=== PATIENT | male | born 1970 | race African-American/Black ===

== ENCOUNTER 2019-01-31 22:39 | Emergency (ER) | payer SELFPAY ==
[~2019-01-31] VITALS: Ht 193 cm; Wt 136.1 kg
[~2019-01-31 22:39] MED LIST: CETI10TA16 PO
[2019-01-31 23:03] VITALS: BP 170/101
[2019-02-01] MEDS ORDERED: MECLIZINE HCL 12.5 MG TABLET. PO ONE
--- NOTE | 2019-02-01 00:04 | PHYS DOC ---
Past Medical History Past Medical History: Hypertension Past Surgical History: No Surgical History Alcohol Use: Rarely Drug Use: None Adult General Chief Complaint Chief Complaint: DIZZY/LIGHT HEADED HPI HPI Patient is a 48 year old male who presents with complaining of dizziness. Patient states for the last 2-3 days he has had intermittent episodes of dizziness with change of position and standing up. Patient states tonight he had nausea and bilateral hand numbness with dizziness. Patient states paresthesia last about 20 minutes and resolved at arrival to ER. Patient states he has had history of hypertension for long time and usually his blood pressure is well-controlled with diet and does not take any medication. Patient had elevation of blood pressure at arrival to ER. Review of Systems Review of Systems Constitutional: Denies fever or chills [] Eyes: Denies change in visual acuity, redness, or eye pain [] HENT: Denies nasal congestion or sore throat [] Respiratory: Denies cough or shortness of breath [] Cardiovascular: No additional information not addressed in HPI [] GI: Denies abdominal pain, vomiting, bloody stools or diarrhea , reports nausea[] : Denies dysuria or hematuria [] Musculoskeletal: Denies back pain or joint pain [] Integument: Denies rash or skin lesions [] Neurologic: Denies headache, focal weakness, reports dizziness and sensory changes [] Endocrine: Denies polyuria or polydipsia [] All other systems were reviewed and found to be within normal limits, except as documented in this note. Current Medications Current Medications Current Medications Medications (Trade) Dose Ordered Sig/Lubna Start Time Stop Time Status Last Admin Dose Admin Meclizine HCl (Antivert) 25 mg 1X ONCE 02/01/19 00:00 02/01/19 00:01 DC 02/01/19 00:28 25 MG Allergies Allergies Allergies Coded Allergies Type Severity Reaction Last Updated Verified No Known Drug Allergies 07/19/15 No Physical Exam Physical Exam Constitutional: Well developed, well nourished, no acute distress, non-toxic appearance. [] HENT: Normocephalic, atraumatic, bilateral external ears normal, oropharynx moist, no oral exudates, nose normal. [] Eyes: PERRLA, EOMI, conjunctiva normal, no discharge. [] Neck: Normal range of motion, no tenderness, supple, no stridor. [] Cardiovascular:Heart rate regular rhythm, no murmur [] Lungs & Thorax: Bilateral breath sounds clear to auscultation [] Abdomen: Bowel sounds normal, soft, no tenderness, no masses, no pulsatile masses. [] Skin: Warm, dry, no erythema, no rash. [] Back: No tenderness, no CVA tenderness. [] Extremities: No tenderness, no cyanosis, no clubbing, ROM intact, no edema. [] Neurologic: Alert and oriented X 3, normal motor function, normal sensory function, no focal deficits noted. [] Psychologic: Affect normal, judgement normal, mood normal. [] Current Patient Data Vital Signs Vital Signs Date Time Temp Pulse Resp B/P (MAP) Pulse Ox O2 Delivery O2 Flow Rate FiO2 01/31/19 23:03 98.4 70 19 170/101 (124) 100 Room Air 98.4 Lab Values Laboratory Tests Test 01/31/19 23:30 White Blood Count 7.6 x10^3/uL (4.0-11.0) Red Blood Count 4.85 x10^6/uL (4.30-5.70) Hemoglobin 14.7 g/dL (13.0-17.5) Hematocrit 43.7 % (39.0-53.0) Mean Corpuscular Volume 90 fL (79-100) Mean Corpuscular Hemoglobin 30 pg (25-35) Mean Corpuscular Hemoglobin Concent 34 g/dL (31-37) Red Cell Distribution Width 13.7 % (11.5-14.5) Platelet Count 277 x10^3/uL (140-400) Neutrophils (%) (Auto) 60 % (31-73) Lymphocytes (%) (Auto) 30 % (24-48) Monocytes (%) (Auto) 6 % (0-9) Eosinophils (%) (Auto) 3 % (0-3) Basophils (%) (Auto) 1 % (0-3) Neutrophils # (Auto) 4.6 x10^3/uL (1.8-7.7) Lymphocytes # (Auto) 2.3 x10^3/uL (1.0-4.8) Monocytes # (Auto) 0.5 x10^3/uL (0.0-1.1) Eosinophils # (Auto) 0.2 x10^3/uL (0.0-0.7) Basophils # (Auto) 0.0 x10^3/uL (0.0-0.2) Prothrombin Time 13.0 SEC (11.7-14.0) Prothrombin Time INR 1.0 (0.8-1.1) Sodium Level 138 mmol/L (136-145) Potassium Level 3.8 mmol/L (3.5-5.1) Chloride Level 102 mmol/L (98-107) Carbon Dioxide Level 28 mmol/L (21-32) Anion Gap 8 (6-14) Blood Urea Nitrogen 12 mg/dL (8-26) Creatinine 1.3 mg/dL (0.7-1.3) Estimated GFR (Cockcroft-Gault) 71.6 BUN/Creatinine Ratio 9 (6-20) Glucose Level 180 mg/dL (70-99) H Calcium Level 9.0 mg/dL (8.5-10.1) Magnesium Level 1.7 mg/dL (1.8-2.4) L Total Bilirubin 0.3 mg/dL (0.2-1.0) Aspartate Amino Transferase (AST) 14 U/L (15-37) L Alanine Aminotransferase (ALT) 25 U/L (16-63) Alkaline Phosphatase 57 U/L (46-116) Creatine Kinase 130 U/L (39-308) Troponin I Quantitative < 0.017 ng/mL (0.000-0.055) QR-Jex-C-Type Natriuretic Peptide 27 pg/mL (0-124) Total Protein 7.6 g/dL (6.4-8.2) Albumin 3.5 g/dL (3.4-5.0) Albumin/Globulin Ratio 0.9 (1.0-1.7) L Laboratory Tests 01/31/19 23:30 Laboratory Tests 01/31/19 23:30 EKG EKG EKG interpreted by me. EKG at 11/08/19 showed sinus bradycardia at rate of 50, nonspecific ST and T-wave abnormalities, poor R-wave progress in anteroseptal leads, normal IA and QT interval, no acute ST and T abnormalities. Radiology/Procedures Radiology/Procedures [facility] [address] [place], [place] [id number] IMAGING REPORT Signed PATIENT: MONICA LEE EACCOUNT: [id number] : 1970 LOCATION: ER AGE: 48 SEX: M EXAM STATUS: DEP ER ORD. PHYSICIAN: JASMYN OSULLIVAN MD REASON: dizziness PROCEDURE: PORTABLE CHEST 1V Single view chest dated September 2018. Comparison made to 07/19/2015. Clinical data indication: Dizziness. FINDINGS: Single upright portable exam performed. Heart and mediastinal contours are stable. Lungs are clear. No consolidation or pleural effusion. No pneumothorax. IMPRESSION: No acute radiographic abnormality. Electronically signed by: Elliot Neal MD (02/01/2019 2:37 AM) [facility] DICTATED and SIGNED BY: ELLIOT NEAL MD DATE: 02/01/19 0237 [facility] [address] [place] [address] IMAGING REPORT Signed PATIENT: MONICA LEE EACCOUNT: [id number] : 1970 LOCATION: ER AGE: 48 SEX: M EXAM STATUS: REG ER ORD. PHYSICIAN: JASMYN OSULLIVAN MD REASON: dizziness PROCEDURE: CT HEAD WO CONTRAST CT head without contrast dated 01/31/2019. Comparison made to 07/19/2015. CLINICAL INDICATION: Dizziness. TECHNIQUE: Contiguous axial imaging the head was performed from skull base to vertex. No contrast administered. One or more of the following individualized dose reduction techniques were utilized for this examination: 1. Automated exposure control 2. Adjustment of the mA and/or kV according to patient size 3. Use of iterative reconstruction technique. FINDINGS: Ventricles and sulci are within normal limits for age. No midline shift or mass effect. Brain parenchyma is of normal attenuation. No hemorrhage or extra-axial collection. Posterior fossa and brainstem unremarkable. Small air-fluid level in the left maxillary sinus. Mild mucosal thickening of the bilateral ethmoid air cells. Mastoid air cells are clear. No apparent calvarial abnormality. IMPRESSION: 1. No evidence of acute intracranial abnormality. 2. Mild sinus disease. Air-fluid level in left maxillary sinus, possibly representing acute sinusitis. Electronically signed by: Elliot Neal MD (02/01/2019 12:11 AM) [facility] DICTATED and SIGNED BY: ELLIOT NEAL MD DATE: 02/01/19 0011 Course & Med Decision Making Course & Med Decision Making Pertinent Labs and Imaging studies reviewed. (See chart for details) Evaluation of patient in ER showed 48-year-old male patient with hypertension that taking medication presented to ER with complaining of dizziness. Patient had unremarkable physical exam and mild elevation of blood pressure 160 that gradually improved to 130s. Labs and CT was unremarkable except for sinusitis. Patient was advised to check his blood pressure and follow-up with his primary care physician. Prescription for clonidine was given for PRN hypertension. Blood sugar was 180 and patient was advised to check departure. Follow with primary care physician. Marsha Disclaimer Marsha Disclaimer This electronic medical record was generated, in whole or in part, using a voice recognition dictation system. Departure Departure Impression: Primary Impression: Dizziness Additional Impressions: Acute sinusitis Uncontrolled hypertension Hyperglycemia Disposition: HOME, SELF-CARE (at 00 57) Condition: IMPROVED Referrals: NO PCP (PCP) Patient Instructions: Dizziness, Form - Blood Pressure Record Sheet, How to Take Your Blood Pressure, [id number], Managing Your High Blood Pressure, Sinusitis Additional Instructions: Drink plenty of liquids Follow-up with your primary care physician in 3-5 days Return to ER if not getting better Scripts Clonidine Hcl (CLONIDINE HCL) 0.1 Mg Tablet 0.1 MG PO BID, #20 TAB Prov: JASMYN OSULLIVAN MD 02/01/19 Amoxicillin (AMOXICILLIN) 500 Mg Capsule 1 CAP PO Q8HRS for infection, #30 CAP Prov: JASMYN OSULLIVAN MD 02/01/19 Problem Qualifiers Additional Impressions: Acute sinusitis Sinusitis location: maxillary Recurrence: not specified as recurrent Qualified Codes: J01.00 - Acute maxillary sinusitis, unspecified JASMYN OSULLIVAN MD Feb 01, 2019 00:03
[2019-02-01 00:07] LABS: BASO % 1 % (0-3); EOS # 0.2 x10^3/uL (0.0-0.7); EOS % 3 % (0-3); HEMATOCRIT 43.7 % (39.0-53.0); HEMOGLOBIN 14.7 g/dL (13.0-17.5); LYMPH # 2.3 x10^3/uL (1.0-4.8); LYMPH % 30 % (24-48); MEAN CORPUSCULAR HEMOGLOBIN 30 pg (25-35); MEAN CORPUSCULAR HGB CONC 34 g/dL (31-37); MEAN CORPUSCULAR VOLUME 90 fL (79-100); MONO # 0.5 x10^3/uL (0.0-1.1); MONO % 6 % (0-9); NEUT # 4.6 x10^3/uL (1.8-7.7); NEUT % 60 % (31-73); PLATELET COUNT 277 x10^3/uL (140-400); RED BLOOD COUNT 4.85 x10^6/uL (4.30-5.70); RED CELL DISTRIBUTION WIDTH 13.7 % (11.5-14.5); WHITE BLOOD COUNT 7.6 x10^3/uL (4.0-11.0)
--- NOTE | 2019-02-01 00:13 | RAD ---
CT head without contrast dated 01/31/2019. Comparison made to 07/19/2015. CLINICAL INDICATION: Dizziness. TECHNIQUE: Contiguous axial imaging the head was performed from skull base to vertex. No contrast administered. One or more of the following individualized dose reduction techniques were utilized for this examination: 1. Automated exposure control 2. Adjustment of the mA and/or kV according to patient size 3. Use of iterative reconstruction technique. FINDINGS: Ventricles and sulci are within normal limits for age. No midline shift or mass effect. Brain parenchyma is of normal attenuation. No hemorrhage or extra-axial collection. Posterior fossa and brainstem unremarkable. Small air-fluid level in the left maxillary sinus. Mild mucosal thickening of the bilateral ethmoid air cells. Mastoid air cells are clear. No apparent calvarial abnormality. IMPRESSION: 1. No evidence of acute intracranial abnormality. 2. Mild sinus disease. Air-fluid level in left maxillary sinus, possibly representing acute sinusitis. Electronically signed by: Elliot Neal MD (02/01/2019 12:11 AM) [facility]
[2019-02-01 00:15] LABS: CREATININE 1.3 mg/dL (0.7-1.3); GFR 71.6; POTASSIUM 3.8 mmol/L (3.5-5.1)
[2019-02-01 00:21] LABS: ALBUMIN 3.5 g/dL (3.4-5.0); ALBUMIN/GLOBULIN RATIO 0.9 (1.0-1.7); MAGNESIUM 1.7 mg/dL (1.8-2.4); TOTAL BILIRUBIN 0.3 mg/dL (0.2-1.0); TOTAL PROTEIN 7.6 g/dL (6.4-8.2)
[2019-02-01] MEDS ORDERED: AMOX500C PO (00:59)
[2019-02-01] MEDS ORDERED: CLON0.1T PO (00:59)
--- NOTE | 2019-02-01 02:40 | RAD ---
Single view chest dated September 2018. Comparison made to 07/19/2015. Clinical data indication: Dizziness. FINDINGS: Single upright portable exam performed. Heart and mediastinal contours are stable. Lungs are clear. No consolidation or pleural effusion. No pneumothorax. IMPRESSION: No acute radiographic abnormality. Electronically signed by: Elliot Neal MD (02/01/2019 2:37 AM) [facility]
--- NOTE | 2019-02-01 05:01 | EKG ---
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
== END 2019-02-01 02:00 | disposition home or self-care (01) ==
LOC: ER 22:39
DX: R42 Dizziness and giddiness (principal); R20.0 Anesthesia of skin; I10 Essential (primary) hypertension; J01.00 Acute maxillary sinusitis, unspecified; R73.9 Hyperglycemia, unspecified
CPT/HCPCS: 36415; 70450; 71045; 80053; 82550; 83735; 83880; 84484; 85025; 85610; 93005; 99285; J8597

== ENCOUNTER 2020-07-29 16:38 | Inpatient (IN) | payer SELFPAY ==
[~2020-07-29] VITALS: Ht 193 cm; Wt 128.4 kg
[~2020-07-29 16:38] MED LIST changes: +AMOX500C PO; +CLON0.1T PO
[2020-07-29] MEDS ORDERED: IOHEXOL 300 MG/ML 100ML VIAL. IV ONE (17:00)
--- NOTE | 2020-07-29 17:00 | PHYS DOC ---
Past Medical History Past Medical History: Hypertension Past Surgical History: No Surgical History Smoking Status: Former Smoker Alcohol Use: Rarely Drug Use: None General Adult EDM: Chief Complaint: NAUSEA/VOMITING/DIARRHA HPI: HPI: Patient is a 49 year old male who presents with vomiting and diarrhea for the last week. He states he is unable to keep anything down. He states that he has no abdominal pain only nausea and vomiting. He states that the diarrhea has stopped over the last 2 days. He states that he is feeling very weak. Patient denies shortness of breath, cough, chest pain, abdominal pain, fever, chills, body aches, headache, dizziness, numbness or tingling, focal weakness, vision changes. She has a history of seizures, headache, hypertension, high cholesterol, diabetes. Review of Systems: Review of Systems: Constitutional: Denies fever or chills. [] Eyes: Denies change in visual acuity. [] HENT: Denies nasal congestion or sore throat. [] Respiratory: Denies cough or shortness of breath. [] Cardiovascular: Denies chest pain or edema. [] GI: Denies abdominal pain, +nausea, +vomiting, denies bloody stools or diarrhea. [] : Denies dysuria. [] Musculoskeletal: Denies back pain or joint pain. +Generalized weakness[] Integument: Denies rash. [] Neurologic: Denies headache, focal weakness or sensory changes. [] Endocrine: Denies polyuria or polydipsia. [] Lymphatic: Denies swollen glands. [] Psychiatric: Denies depression or anxiety. [] Heart Score: Risk Factors: Risk Factors: DM, Current or recent (<one month) smoker, HTN, HLP, family history of CAD, obesity. Risk Scores: Score 0 - 3: 2.5% MACE over next 6 weeks - Discharge Home Score 4 - 6: 20.3% MACE over next 6 weeks - Admit for Clinical Observation Score 7 - 10: 72.7% MACE over next 6 weeks - Early Invasive Strategies Current Medications: Current Medications Medications (Trade) Dose Ordered Sig/Lubna Start Time Stop Time Status Last Admin Dose Admin Famotidine (Pepcid Vial) 20 mg 1X ONCE 07/29/20 17:00 07/29/20 17:01 UNV Metoclopramide HCl (Reglan Vial) 10 mg 1X ONCE 07/29/20 17:00 2/7/21 17:01 UNV Ondansetron HCl (Zofran) 4 mg 1X ONCE 07/29/20 17:00 07/29/20 17:01 UNV Sodium Chloride 1,000 ml @ 1,000 mls/hr Q1H 07/29/20 17:00 07/29/20 17:59 UNV Allergies: Allergies: Allergies Coded Allergies Type Severity Reaction Last Updated Verified No Known Drug Allergies 07/19/15 No Physical Exam: PE: Constitutional: Well developed, well nourished, no acute distress, non-toxic appearance. [] HENT: Normocephalic, atraumatic, bilateral external ears normal, oropharynx moist, no oral exudates, nose normal. [] Eyes: PERRLA, EOMI, conjunctiva normal, no discharge. [] Neck: Normal range of motion, no tenderness, supple, no stridor. [] Cardiovascular:Heart rate regular rhythm, no murmur [] Lungs & Thorax: Bilateral breath sounds clear to auscultation [] Abdomen: Bowel sounds normal, soft, no tenderness, no masses, no pulsatile masses. [] Skin: Warm, dry, no erythema, no rash. [] Back: No tenderness, no CVA tenderness. [] Extremities: No tenderness, no cyanosis, no clubbing, ROM intact, no edema. [] Neurologic: Alert and oriented X 3, normal motor function, normal sensory function, no focal deficits noted. [] Psychologic: Affect normal, judgement normal, mood normal. Normal physical exam [] EKG: EK and read by Dr. Huynh as sinus Tachycardia and no STEMI [] Radiology/Procedures: Radiology/Procedures: [] Impression: [facility] [address] [place], [place] [id number] IMAGING REPORT Signed PATIENT: MONICA LEE EACCOUNT: [id number] : 1970 LOCATION: ER AGE: 49 SEX: M EXAM STATUS: REG ER ORD. PHYSICIAN: ANDREEA LARA APRN REASON: VOMITING AND DIARRHEA X 1 WEEK PROCEDURE: CT ABDOMEN PELVIS WO CONTRAST Exam: CT of abdomen and pelvis without contrast INDICATION: Vomiting and diarrhea TECHNIQUE: Sequential axial images through the abdomen and pelvis obtained without IV contrast. Sagittal and coronal reformatted images were reconstructed from the axial data and reviewed. Comparisons: None FINDINGS: Heart size is normal. No pericardial effusion. Visualized lung bases are clear. No pleural Evaluation of solid organs is limited secondary to noncontrast technique. Liver, spleen, pancreas, gallbladder and adrenals are unremarkable. No perinephric inflammation or hydronephrosis. No renal or ureteral calculi are identified. Bladder is decompressed not well evaluated. Prostate is not enlarged. Large and small bowel are unremarkable. Appendix is normal. No free intra- abdominal air or fluid. No obstruction. Abdominal aorta has a normal course and caliber. No enlarged intra-abdominal lymph nodes are identified. No suspicious osseous lesions or acute fractures. IMPRESSION: No acute process identified within the abdomen or pelvis. Exposure: One or more of the following in the visualized dose reduction techniques were utilized for this examination: 1. Automated exposure control 2. Adjustment of the MA and/or KV according to patient size 3. Use of iterative of reconstructive technique Electronically signed by: Ba Borjas MD (07/29/2020 6:41 PM) [facility] DICTATED and SIGNED BY: BA BORJAS MD DATE: 07/29/20 [id number] 0 Course & Med Decision Making: Course & Med Decision Making Pertinent Labs and Imaging studies reviewed. (See chart for details) COVID-19 CRITERIA: The patient was evaluated during the global COVID-19 pandemic, and that diagnosis was suspected/considered upon their initial presentation. Their evaluation, treatment and testing was consistent with current guidelines for patients who present with complaints or symptoms that may be related to COVID-19. See HPI. Alert and oriented x4. Ambulatory with a steady gait. Skin pink warm and dry. Abdomen is soft and nontender. Speaks in full complete sentences. No extremity edema. Patient is given Zofran, Reglan and a bag of normal saline in the ED. Blood work shows acute kidney injury with DKA. Urinalysis shows trichomonas and dehydration. Patient is given a dose of Flagyl to the IV due to his vomiting. Patient be admitted to the hospital. He is started on an IV drip. [] Marsha Disclaimer: Marsha Disclaimer: This electronic medical record was generated, in whole or in part, using a voice recognition dictation system. COVID-19 Patient Risks: Age 65 or older: No Sign of co-morbidity: Yes Exp to person + for COVID: No Exp to PUI: No Travel from affected area: No Lower respiratory symptoms: No Other: Yes (N/V/D) PPE Use: Full PPE with N95 mask or PAPR: Yes Departure Departure Impression: Primary Impression: DKA (diabetic ketoacidoses) Qualified Codes: E11.10 - Type 2 diabetes mellitus with ketoacidosis without coma Additional Impressions: Trichomonas infection Person under investigation for COVID-19 Disposition: ADMITTED INPT THIS HOSP Admitting Physician: BRITANY Condition: STABLE Referrals: NO PCP (PCP) ANDREEA LARA APRN Jul 29, 2020 17:00
[2020-07-29] MEDS ORDERED: CONTRAST GIVEN. MC PRN (17:15)
[2020-07-29] MEDS ORDERED: FAMOTIDINE 20 MG/2 ML VIAL IVP ONE (17:30)
[2020-07-29] MEDS ORDERED: IV NORMAL SALINE 1000ML BAG 1,000 ML IV SCH ×3 (17:30→19:45)
[2020-07-29] MEDS ORDERED: ONDANSETRON PF 4 MG/2 ML VIAL. IVP ONE (17:30)
[2020-07-29] MEDS ORDERED: METOCLOPRAMIDE HCL 10 MG/2 ML VIAL. IVP ONE (17:30)
[2020-07-29 17:51] LABS: BASO % 0 % (0-3); EOS % 0 % (0-3); HEMATOCRIT 49.2 % (39.0-53.0); HEMOGLOBIN 16.3 g/dL (13.0-17.5); LYMPH # 1.1 x10^3/uL (1.0-4.8); LYMPH % 7 % (24-48); MEAN CORPUSCULAR HEMOGLOBIN 30 pg (25-35); MEAN CORPUSCULAR HGB CONC 33 g/dL (31-37); MEAN CORPUSCULAR VOLUME 92 fL (79-100); MONO # 0.4 x10^3/uL (0.0-1.1); MONO % 3 % (0-9); NEUT # 12.8 x10^3/uL (1.8-7.7); NEUT % 89 % (31-73); PLATELET COUNT 322 x10^3/uL (140-400); RED BLOOD COUNT 5.37 x10^6/uL (4.30-5.70); WHITE BLOOD COUNT 14.4 x10^3/uL (4.0-11.0)
[2020-07-29 18:08] LABS: ALBUMIN/GLOBULIN RATIO 0.8 (1.0-1.7); CALCIUM 9.9 mg/dL (8.5-10.1); CREATININE 2.1 mg/dL (0.7-1.3); POTASSIUM 4.5 mmol/L (3.5-5.1); TOTAL BILIRUBIN 0.6 mg/dL (0.2-1.0); TOTAL PROTEIN 8.8 g/dL (6.4-8.2)
[2020-07-29] MEDS ORDERED: IV NORMAL SALINE 1000ML BAG 1,000 ML IV ONE (18:15)
[2020-07-29] MEDS ORDERED: INSULIN REGULAR 100 UNIT/ML 3ML VIAL. IV ONE (18:15)
[2020-07-29 18:31] LABS: BILIRUBIN,URINE NEGATIVE (NEG); CLARITY,URINE CLEAR; COLOR,URINE YELLOW; NITRITE,URINE NEGATIVE (NEG); PROTEIN,URINE 30 mg/dL (NEG-TRACE); UROBILINOGEN,URINE 0.2 mg/dL (0.2 mg/dL)
[2020-07-29 18:36] LABS: BACTERIA,URINE 0 /HPF (0-FEW); RBC,URINE OCC /HPF (0-2)
[2020-07-29 18:37] LABS: INFLUENZA A PATIENT NEGATIVE (NEGATIVE); INFLUENZA B PATIENT NEGATIVE (NEGATIVE)
[2020-07-29 18:38] LABS: HYALINE CASTS, URINE FEW /HPF; TRICHOMONAS,URINE PRESENT; YEAST,URINE PRESENT /HPF
--- NOTE | 2020-07-29 18:44 | RAD ---
Exam: CT of abdomen and pelvis without contrast INDICATION: Vomiting and diarrhea TECHNIQUE: Sequential axial images through the abdomen and pelvis obtained without IV contrast. Sagit howie and coronal reformatted images were reconstructed from the axial data and reviewed. Comparisons: None FINDINGS: Heart size is normal. No pericardial effusion. Visualized lung bases are clear. No pleural Evaluation of solid organs is limited secondary to noncontrast technique. Liver, spleen, pancreas, gallbladder and adrenals are unremarkable. No perinephric inflammation or hydronephrosis. No renal or ureteral calculi are identified. Bladder is decompressed not well evaluated. Prostate is not enlarged. Large and small bowel are unremarkable. Appendix is normal. No free intra-abdominal air or fluid. No obstruction. Abdominal aorta has a normal course and caliber. No enlarged intra-abdominal lymph nodes are identified. No suspicious osseous lesions or acute fractures. IMPRESSION: No acute process identified within the abdomen or pelvis. Exposure: One or more of the following in the visualized dose reduction techniques were utilized for this examination: 1. Automated exposure control 2. Adjustment of the MA and/or KV according to patient size 3. Use of iterative of reconstructive technique Electronically signed by: Ba Reddy MD (07/29/2020 6:41 PM) [facility]
[2020-07-29 18:45] LABS: % BASOS 1 % (0-3); % LYMPHS 9 % (24-48); % MONOS 5 % (0-10); % SEGS 85 % (35-66)
[2020-07-29] MEDS ORDERED: INSULIN,REGULAR 100 UNIT DRIP 100 ML IV ONE (18:45)
[2020-07-29 18:46] LABS: PLT ESTIMATE ADEQUATE (ADEQUATE)
[2020-07-29 18:48] LABS: BASE EXCESS COOX -18 mmol/L (-3-3); HCO3 COOX 8 mmol/L (21-28); METHEMOGLOBIN 0.5 % (0.0-1.9); OXYHEMOGLOBIN 96.2 %; PO2 COOX 111 mmHg (75-108); SAT O2 COOX 97 % (92-99)
[2020-07-29 18:51] LABS: PCO2 COOX 19 mmHg (35-46)
[2020-07-29] MEDS ORDERED: ACETAMINOPHEN 325 MG TABLET. PO PRN (19:45)
[2020-07-29] MEDS ORDERED: POTASSIUM CHLORIDE 10MEQ 100 ML IV PRN ×3 (19:45)
[2020-07-29] MEDS ORDERED: INSULIN REGULAR VIAL 100 UNIT in IV NORMAL SALINE 100ML 100 ML IV PRN (19:45)
[2020-07-29] MEDS ORDERED: LACTULOSE 20 GM/30 ML SOLUTION. PO PRN (19:45)
[2020-07-29] MEDS ORDERED: BISACODYL 10 MG SUPP.RECT. PR PRN (19:45)
[2020-07-29] MEDS ORDERED: 0.9 % SODIUM CHLORIDE 10 ML DISP.SYRIN. IV PRN (19:45)
[2020-07-29] MEDS ORDERED: ONDANSETRON PF 4 MG/2 ML VIAL. IVP PRN (19:45)
[2020-07-29] MEDS ORDERED: fentaNYL PF VIAL 100 MCG/2 ML VIAL IV PRN (19:45)
[2020-07-29] MEDS ORDERED: ONDANSETRON PF 4 MG/2 ML VIAL. IV PRN (20:00)
[2020-07-29] MEDS: SENNOSIDES/DOCUSATE 8.6/50MG TABLET. PO SCH (21:00)
[2020-07-29] MEDS: DOCUSATE SODIUM 100 MG CAPSULE. PO SCH (21:00)
[2020-07-29] MEDS: FAMOTIDINE 20 MG/2 ML VIAL IVP SCH (21:00)
[2020-07-29 22:00] VITALS: BP 154/93
[2020-07-29] MEDS: IV NORMAL SALINE 1000ML BAG 1,000 ML IV SCH (22:15)
[2020-07-29] MEDS: IV DEXTROSE 5% - 0.9 % NACL 1,000 ML IV SCH (22:31)
[2020-07-29 22:51] LABS: CALCIUM 8.5 mg/dL (8.5-10.1); CREATININE 1.6 mg/dL (0.7-1.3); GFR 56.1; MAGNESIUM 1.8 mg/dL (1.8-2.4); PHOSPHORUS 3.2 mg/dL (2.6-4.7); POTASSIUM 4.4 mmol/L (3.5-5.1)
[2020-07-29 23:00] VITALS: BP 155/91
[2020-07-30] VITALS (12 sets, daily range): BP systolic 133–160; BP diastolic 72–92
[2020-07-30] MEDS ORDERED: MAGNESIUM SULFATE 4GM 100 ML IV SCH
[2020-07-30] MEDS: IV DEXTROSE 5% - 0.9 % NACL 1,000 ML IV SCH (02:40)
[2020-07-30 06:57] LABS: CALCIUM 8.8 mg/dL (8.5-10.1); CREATININE 1.4 mg/dL (0.7-1.3); GFR 65.4; POTASSIUM 3.7 mmol/L (3.5-5.1)
[2020-07-30 07:01] LABS: MAGNESIUM 3.1 mg/dL (1.8-2.4); PHOSPHORUS 3.3 mg/dL (2.6-4.7)
--- NOTE | 2020-07-30 07:44 | NUR ---
On 07/29/20 at approximately 2155, patient arrived in room 106 from the ED. Patient oriented to room and unit policies. Patient able to walk from ED gurney to ICU bed. All vital signs stable. No other concerns at this time, will continue to monitor.
[2020-07-30] MEDS ORDERED: INSULIN GLARGINE SYRINGE. SQ ONE (08:00)
[2020-07-30] MEDS ORDERED: ELECTROLYTE (ICU) PROTOCOL. MC SCH (09:00)
[2020-07-30] MEDS: SENNOSIDES/DOCUSATE 8.6/50MG TABLET. PO SCH ×3 (09:00→21:06)
[2020-07-30] MEDS: DOCUSATE SODIUM 100 MG CAPSULE. PO SCH ×3 (09:00→21:06)
[2020-07-30] MEDS ORDERED: MAGNESIUM SULFATE 4GM 100 ML IV PRN (09:00)
[2020-07-30] MEDS: FAMOTIDINE 20 MG/2 ML VIAL IVP SCH (09:09)
[2020-07-30] MEDS ORDERED: DEXTROSE 50% 25 GM / 50ML DISP.SYRIN. IV PRN (09:15)
--- NOTE | 2020-07-30 09:56 | NUR ---
Patient transferred out of ICU at 0950 via wheelchair with patient's belongings. Patient said he would notify his later when she's awake. Gave report to Haether Pena RN.
[2020-07-30] MEDS: IV NORMAL SALINE 1000ML BAG 1,000 ML IV SCH ×2 (10:49→16:22)
--- NOTE | 2020-07-30 12:04 | EKG ---
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
--- NOTE | 2020-07-30 12:15 | HP ---
ADMIT DATE: 07/30/2020 CHIEF COMPLAINT: Nausea, vomiting, diarrhea. HISTORY OF PRESENT ILLNESS: The patient is a pleasant 49-year-old male who presented to the ER with nausea, vomiting, diarrhea. It is worse with food. His symptoms are worse with food, better with no food. No diarrhea. Started last week. He has been trying to increase his home meds, but that did not seem to help. He has been very weak. I discussed the case with the ER physician. We are going to admit the patient and consult Nephrology as his creatinine is high at 1.4. He also has some mild hyperglycemia with an anion gap metabolic acidosis, suspicious for DKA. PAST MEDICAL HISTORY: Hypertension, previous tobacco abuse. ALLERGIES: None. FAMILY HISTORY: Diabetes. SOCIAL HISTORY: He does not drink or take drugs. He used to smoke. MEDICATIONS: Reviewed, please refer to the MRAD. REVIEW OF SYSTEMS: GENERAL: No history of weight change, weakness or fevers. SKIN: No bruising, hair changes or rashes. EYES: No blurred, double or loss of vision. NOSE AND THROAT: No history of nosebleeds, hoarseness or sore throat. HEART: No history of palpitations, chest pain or shortness of breath on exertion. LUNGS: Denies cough, hemoptysis, wheezing or shortness of breath. GASTROINTESTINAL: Denies changes in appetite, nausea, vomiting, diarrhea or constipation. GENITOURINARY: No history of frequency, urgency, hesitancy or nocturia. NEUROLOGIC: Denies history of numbness, tingling, tremor or weakness. PSYCHIATRIC: No history of panic, anxiety or depression. ENDOCRINE: No history of heat or cold intolerance, polyuria or polydipsia. EXTREMITIES: Denies muscle weakness, joint pain, pain on walking or stiffness. PHYSICAL EXAMINATION: VITALS: Within normal limits and are stable. GENERAL: No apparent distress. Alert and oriented. HEENT: Normal cephalic atraumatic, external auditory canals are patent. EYES: Extraocular muscles are intact, pupils are equally round and reactive to light and accommodation. MUSCULOSKELETAL: Well developed, well nourished, good range of motion. ENDOCRINE: No thyromegaly was palpated. LYMPHATICS: No cervical chain or axillary nodes were noted. HEMATOPOIETIC: No bruising. NECK: Supple, no JVD, no thyromegaly was noted. LUNGS: Clear to auscultation in all lung mendez without rhonchi or wheezing. HEART: RRR, S1, S2 present. Peripheral pulses intact, no obvious murmurs were noted. ABDOMEN: Soft, nontender. Positive bowel sounds no organomegaly, normal bowel sounds. EXTREMITIES: Without any cyanosis, clubbing, or edema. Pedal pulses intact, Homans sign is negative. NEUROLOGIC: Normal speech, normal tone. A & O x 3, moves all extremities, no obvious focal deficits. PSYCHIATRIC: Normal affect, normal mood. Stable. SKIN: No ulcerations or rashes, good skin turgor, no jaundice. VASCULAR: Good capillary refill, neurovascular bundle appears to be intact. LABORATORY DATA: White count 14, hemoglobin 16, platelets 322. Glucose was at 518, we got it down to 136. Anion gap was at 27, we have it down to 12. ASSESSMENT AND PLAN: Resolving diabetic ketoacidosis and renal failure. The patient has been admitted. We have started him on diabetic ketoacidosis protocol and that seems to be working well. Consult Nephrology. IV fluids, IV insulin and we hope to change that to subcutaneous insulin soon. Trend labs, p.rnoemy Shahid. Diabetic education. STEFFI PHELAN DO DR: CHIQUITA/oneyda JOB#: [id number] / [id number]
--- NOTE | 2020-07-30 14:32 | PDOC2 ---
CONSULT Date of Consult Date of Consult DATE: 07/30/20 TIME: 14:08 Reason for Consult Reason for Consult: ROGELIO Source Source: Chart review, Patient History of Present Illness Reason for Visit: Patient is a 49 year old male who presents with vomiting and diarrhea for the last week. He was unable to keep anything down. no abdominal pain only nausea and vomiting.Had diarrhea has stopped over the last 2 days. feeling very weak. Patient denies shortness of breath, cough, chest pain, abdominal pain, fever, chills, body aches, headache, dizziness, numbness or tingling, focal weakness, vision changes. He has a history of seizures, headache, hypertension, high cholesterol, diabetes. Denies any urinary complaints No concerns or complaints [id number] by nursing Past Medical History Cardiovascular: HTN Pulmonary: No pertinent hx GI: No pertinent hx Rheumatologic: No pertinent hx Infectious disease: No pertinent hx Renal/: No pertinent hx Past Surgical History Past Surgical History: No pertinent history Family History Family History: No Significant Social History ALCOHOL: none Drugs: Marijuana Current Problem List Problem List Problems Medical Problems: (1) DKA (diabetic ketoacidoses) Status: Acute (2) Person under investigation for COVID-19 Status: Acute (3) Trichomonas infection Status: Acute Current Medications Current Medications Current Medications Sodium Chloride 1,000 ml @ 1,000 mls/hr Q1H IV Last administered on 07/29/20at 17:54; Start 07/29/20 at 17:30; Stop 07/29/20 at 18:29; Status DC Ondansetron HCl (Zofran) 4 mg 1X ONCE IVP Last administered on 07/29/20at 17:55; Start 07/29/20 at 17:30; Stop 07/29/20 at 17:31; Status DC Famotidine (Pepcid Vial) 20 mg 1X ONCE IVP Last administered on 07/29/20at 17:54; Start 07/29/20 at 17:30; Stop 07/29/20 at 17:31; Status DC Metoclopramide HCl (Reglan Vial) 10 mg 1X ONCE IVP Last administered on 07/29/20at 17:55; Start 07/29/20 at 17:30; Stop 07/29/20 at 17:31; Status DC Iohexol (Omnipaque 300 Mg/ml) 75 ml 1X ONCE IV Last administered on 07/29/20at 17:00; Start 07/29/20 at 17:00; Stop 07/29/20 at 17:02; Status DC Info (CONTRAST GIVEN -- Rx MONITORING) 1 each PRN DAILY PRN MC SEE COMMENTS; Start 07/29/20 at 17:15; Stop 07/31/20 at 17:14 Insulin Human Regular (HumuLIN R VIAL) 10 unit 1X ONCE IV Last administered on 07/29/20at 18:23; Start 07/29/20 at 18:15; Stop 07/29/20 at 18:16; Status DC Sodium Chloride 1,000 ml @ 1,000 mls/hr 1X ONCE IV Last administered on 07/29/20at 19:35; Start 07/29/20 at 18:15; Stop 07/29/20 at 19:14; Status DC Sodium Chloride 1,000 ml @ 1,000 mls/hr Q1H IV Last administered on 07/29/20at 20:05; Start 07/29/20 at 18:45; Stop 07/29/20 at 19:44; Status DC Insulin Human Regular 100 ml @ 0 mls/hr 1X ONCE IV Last administered on 07/29/20at 20:04; Start 07/29/20 at 18:45; Stop 07/29/20 at 18:46; Status DC Metronidazole 100 ml @ 100 mls/hr 1X ONCE IV Last administered on 07/29/20at 19:57; Start 07/29/20 at 18:45; Stop 07/29/20 at 19:44; Status DC Insulin Human Regular 100 unit/ Sodium Chloride 101 ml @ 0 mls/hr CONT PRN PRN IV PER PROTOCOL; Start 07/29/20 at 19:45; Stop 07/30/20 at 09:05; Status DC Potassium Chloride/Water 100 ml @ 100 mls/hr PRN Q1HR PRN IV SEE COMMENTS; Start 07/29/20 at 19:45; Stop 07/30/20 at 09:05; Status DC Potassium Chloride/Water 100 ml @ 100 mls/hr PRN Q1HR PRN IV SEE COMMENTS; Start 07/29/20 at 19:45; Stop 07/30/20 at 09:05; Status DC Potassium Chloride/Water 100 ml @ 100 mls/hr PRN Q1HR PRN IV SEE COMMENTS; Start 07/29/20 at 19:45; Stop 07/30/20 at 09:05; Status DC Magnesium Sulfate 100 ml @ 25 mls/hr PRN DAILY PRN IV SEE ORDER COMMENTS; Start 07/30/20 at 09:00; Stop 07/30/20 at 09:05; Status DC Acetaminophen (Tylenol) 650 mg PRN Q6HRS PRN PO Headaches, Temp > 101.5'; Start 07/29/20 at 19:45 Lorazepam (Ativan Inj) 0.5 mg PRN Q6HRS PRN IVP ANXIETY / AGITATION; Start 07/29/20 at 19:45 Ondansetron HCl (Zofran) 4 mg PRN Q6HRS PRN IVP NAUSEA/VOMITING; Start 07/29/20 at 19:45 Famotidine (Pepcid Vial) 20 mg BID IVP Last administered on 07/30/20at 09:09; Start 07/29/20 at 21:00 Info (Icu Electrolyte Protocol) 1 ea DAILY MC ; Start 07/30/20 at 09:00; Stop 07/30/20 at 09:05; Status DC Sodium Chloride (Normal Saline Flush) 3 ml QSHIFT PRN IV AFTER MEDS AND BLOOD DRAWS; Start 07/29/20 at 19:45 Sodium Chloride 1,000 ml @ 100 mls/hr Q10H IV ; Start 07/29/20 at 19:45; Stop 07/29/20 at 22:25; Status DC Fentanyl Citrate (Fentanyl 2ml Vial) 25 mcg PRN Q1HR PRN IV pain; Start 07/29/20 at 19:45 Senna/Docusate Sodium (Senna Plus) 1 tab BID PO ; Start 07/29/20 at 21:00 Docusate Sodium (Colace) 100 mg BID PO ; Start 07/29/20 at 21:00 Lactulose (Lactulose) 20 gm PRN Q12HR PRN PO CONSTIPATION-2ND CHOICE; Start 07/29/20 at 19:45 Bisacodyl (Dulcolax Supp) 10 mg PRN DAILY PRN [place] CONSTIPATION; Start 07/29/20 at 19:45 Ondansetron HCl (Zofran) 4 mg PRN Q8HRS PRN IV NAUSEA/VOMITING; Start 07/29/20 at 20:00; Stop 07/30/20 at 07:31; Status DC Sodium Chloride 1,000 ml @ 100 mls/hr Q10H IV Last administered on 07/30/20at 10:49; Start 07/29/20 at 20:00; Stop 07/30/20 at 19:59 Dextrose/Sodium Chloride 1,000 ml @ 250 mls/hr Q4H IV Last administered on 07/30/20at 02:40; Start 07/29/20 at 22:30; Stop 07/30/20 at 09:05; Status DC Magnesium Sulfate 100 ml @ 25 mls/hr DAILY IV Last administered on 07/29/20at 23:42; Start 07/30/20 at 00:00; Stop 07/30/20 at 07:30; Status DC Insulin Glargine (Lantus Syringe) 20 unit 1X ONCE SQ Last administered on 07/30/20at 08:24; Start 07/30/20 at 08:00; Stop 07/30/20 at 08:01; Status DC Insulin Human Lispro (HumaLOG) 0-7 UNITS TIDWMEALS SQ ; Start 07/30/20 at 12:00 Dextrose (Dextrose 50%-Water Syringe) 12.5 gm PRN Q15MIN PRN IV SEE COMMENTS; Start 07/30/20 at 09:15 Active Scripts Active Clonidine Hcl 0.1 Mg Tablet 0.1 Mg PO BID Amoxicillin 500 Mg Capsule 1 Cap PO Q8HRS Reported Cetirizine Hcl 10 Mg Tablet 10 Mg PO PRN DAILY PRN Allergies Allergies: Coded Allergies: No Known Drug Allergies (Unverified , 07/19/15) ROS Review of System As per HPI, rest of the ROS is negative Physical Exam Physical Exam GENERAL: No apparent distress. HEENT: OM moist NECK: Supple LUNGS: Clear to auscultation, Non labored HEART: RRR, S1, S2 present. ABDOMEN: Soft, nontender. EXTREMITIES: No cyanosis, clubbing, or edema. NEUROLOGIC: grossly normal PSYCHIATRIC: Normal affect, normal mood. Stable. SKIN: No ulcerations or rashes, good skin turgor, no jaundice. Vital Signs Vital Signs Date Time Temp Pulse Resp B/P (MAP) Pulse Ox O2 Delivery O2 Flow Rate FiO2 07/30/20 07:51 Room Air 07/30/20 07:00 79 16 148/72 (97) 100 07/30/20 04:00 98.4 98.4 Assessment & Plan ROGELIO - Vasomotor/2/2 dehydration/DKA . CT scan - Kidneys/Bladder unremarkable Improving renal function Supportive care, maintain Hydration, I/O, avoid nephrotoxins DKA at presentation - improving, moved out of ICU DM per primary PUI Covid Labs Labs Laboratory Tests Test 07/29/20 17:43 07/29/20 18:03 07/29/20 18:12 07/29/20 18:23 White Blood Count 14.4 x10^3/uL (4.0-11.0) Red Blood Count 5.37 x10^6/uL (4.30-5.70) Hemoglobin 16.3 g/dL (13.0-17.5) Hematocrit 49.2 % (39.0-53.0) Mean Corpuscular Volume 92 fL (79-100) Mean Corpuscular Hemoglobin 30 pg (25-35) Mean Corpuscular Hemoglobin Concent 33 g/dL (31-37) Red Cell Distribution Width 14.0 % (11.5-14.5) Platelet Count 322 x10^3/uL (140-400) Neutrophils (%) (Auto) 89 % (31-73) Lymphocytes (%) (Auto) 7 % (24-48) Monocytes (%) (Auto) 3 % (0-9) Eosinophils (%) (Auto) 0 % (0-3) Basophils (%) (Auto) 0 % (0-3) Neutrophils # (Auto) 12.8 x10^3/uL (1.8-7.7) Lymphocytes # (Auto) 1.1 x10^3/uL (1.0-4.8) Monocytes # (Auto) 0.4 x10^3/uL (0.0-1.1) Eosinophils # (Auto) 0.0 x10^3/uL (0.0-0.7) Basophils # (Auto) 0.0 x10^3/uL (0.0-0.2) Segmented Neutrophils % 85 % (35-66) Lymphocytes % 9 % (24-48) Monocytes % 5 % (0-10) Basophils % 1 % (0-3) Platelet Estimate Adequate (ADEQUATE) Sodium Level 129 mmol/L (136-145) Potassium Level 4.5 mmol/L (3.5-5.1) Chloride Level 93 mmol/L (98-107) Carbon Dioxide Level 9 mmol/L (21-32) Anion Gap 27 (6-14) Blood Urea Nitrogen 33 mg/dL (8-26) Creatinine 2.1 mg/dL (0.7-1.3) Estimated GFR (Cockcroft-Gault) 41.0 BUN/Creatinine Ratio 16 (6-20) Glucose Level 518 mg/dL (70-99) Calcium Level 9.9 mg/dL (8.5-10.1) Magnesium Level 2.0 mg/dL (1.8-2.4) Total Bilirubin 0.6 mg/dL (0.2-1.0) Aspartate Amino Transf (AST/SGOT) 10 U/L (15-37) Alanine Aminotransferase (ALT/SGPT) 23 U/L (16-63) Alkaline Phosphatase 77 U/L (46-116) Troponin I Quantitative < 0.017 ng/mL (0.000-0.055) Total Protein 8.8 g/dL (6.4-8.2) Albumin 4.0 g/dL (3.4-5.0) Albumin/Globulin Ratio 0.8 (1.0-1.7) Lipase 247 U/L (73-393) Acetone Level Mod pos (NEG) Influenza Type A Antigen Negative (NEGATIVE) Influenza Type B Antigen Negative (NEGATIVE) O2 Saturation 97 % (92-99) Arterial Blood pH 7.22 (7.35-7.45) Arterial Blood pCO2 at Patient Temp 19 mmHg (35-46) Arterial Blood pO2 at Patient Temp 111 mmHg (75-108) Arterial Blood HCO3 8 mmol/L (21-28) Arterial Blood Base Excess -18 mmol/L (-3-3) Oxyhemoglobin 96.2 % Methemoglobin 0.5 % (0.0-1.9) Carbon Monoxide, Quantitative 0.3 % (0.0-1.9) FiO2 Ra Urine Collection Type Unknown Urine Color Yellow Urine Clarity Clear Urine pH 5.0 (<5.0-8.0) Urine Specific [place] 1.025 (1.000-1.030) Urine Protein 30 mg/dL (NEG-TRACE) Urine Glucose (UA) >=1000 mg/dL (NEG) Urine Ketones (Stick) >=80 mg/dL (NEG) Urine Blood Trace (NEG) Urine Nitrite Negative (NEG) Urine Bilirubin Negative (NEG) Urine Urobilinogen Dipstick 0.2 mg/dL (0.2 mg/dL) Urine Leukocyte Esterase Negative (NEG) Urine RBC Occ /HPF (0-2) Urine WBC 11-20 /HPF (0-4) Urine Squamous Epithelial Cells Mod /LPF Urine Bacteria 0 /HPF (0-FEW) Urine Hyaline Casts Few /HPF Urine Mucus Slight /LPF Urine Trichomonas Present Urine Yeast Present /HPF Test 07/29/20 21:02 07/29/20 22:15 07/29/20 22:20 07/29/20 23:19 Glucose (Fingerstick) 284 mg/dL (70-99) 172 mg/dL (70-99) 162 mg/dL (70-99) Sodium Level 138 mmol/L (136-145) Potassium Level 4.4 mmol/L (3.5-5.1) Chloride Level 105 mmol/L (98-107) Carbon Dioxide Level 16 mmol/L (21-32) Anion Gap 17 (6-14) Blood Urea Nitrogen 30 mg/dL (8-26) Creatinine 1.6 mg/dL (0.7-1.3) Estimated GFR (Cockcroft-Gault) 56.1 Glucose Level 206 mg/dL (70-99) Calcium Level 8.5 mg/dL (8.5-10.1) Phosphorus Level 3.2 mg/dL (2.6-4.7) Magnesium Level 1.8 mg/dL (1.8-2.4) Test 07/30/20 00:12 07/30/20 01:17 07/30/20 02:23 07/30/20 03:29 Glucose (Fingerstick) 185 mg/dL (70-99) 187 mg/dL (70-99) 140 mg/dL (70-99) 105 mg/dL (70-99) Test 07/30/20 04:31 07/30/20 05:51 07/30/20 06:25 07/30/20 07:30 Glucose (Fingerstick) 136 mg/dL (70-99) 140 mg/dL (70-99) 104 mg/dL (70-99) Sodium Level 140 mmol/L (136-145) Potassium Level 3.7 mmol/L (3.5-5.1) Chloride Level 108 mmol/L (98-107) Carbon Dioxide Level 20 mmol/L (21-32) Anion Gap 12 (6-14) Blood Urea Nitrogen 24 mg/dL (8-26) Creatinine 1.4 mg/dL (0.7-1.3) Estimated GFR (Cockcroft-Gault) 65.4 Glucose Level 136 mg/dL (70-99) Calcium Level 8.8 mg/dL (8.5-10.1) Phosphorus Level 3.3 mg/dL (2.6-4.7) Magnesium Level 3.1 mg/dL (1.8-2.4) QB-[id number]-Type Natriuretic Peptide 37 pg/mL (0-124) Test 07/30/20 11:42 Glucose (Fingerstick) 243 mg/dL (70-99) Laboratory Tests Test 07/29/20 17:43 07/29/20 18:03 07/29/20 18:12 07/29/20 18:23 White Blood Count 14.4 x10^3/uL (4.0-11.0) Red Blood Count 5.37 x10^6/uL (4.30-5.70) Hemoglobin 16.3 g/dL (13.0-17.5) Hematocrit 49.2 % (39.0-53.0) Mean Corpuscular Volume 92 fL (79-100) Mean Corpuscular Hemoglobin 30 pg (25-35) Mean Corpuscular Hemoglobin Concent 33 g/dL (31-37) Red Cell Distribution Width 14.0 % (11.5-14.5) Platelet Count 322 x10^3/uL (140-400) Neutrophils (%) (Auto) 89 % (31-73) Lymphocytes (%) (Auto) 7 % (24-48) Monocytes (%) (Auto) 3 % (0-9) Eosinophils (%) (Auto) 0 % (0-3) Basophils (%) (Auto) 0 % (0-3) Neutrophils # (Auto) 12.8 x10^3/uL (1.8-7.7) Lymphocytes # (Auto) 1.1 x10^3/uL (1.0-4.8) Monocytes # (Auto) 0.4 x10^3/uL (0.0-1.1) Eosinophils # (Auto) 0.0 x10^3/uL (0.0-0.7) Basophils # (Auto) 0.0 x10^3/uL (0.0-0.2) Segmented Neutrophils % 85 % (35-66) Lymphocytes % 9 % (24-48) Monocytes % 5 % (0-10) Basophils % 1 % (0-3) Platelet Estimate Adequate (ADEQUATE) Sodium Level 129 mmol/L (136-145) Potassium Level 4.5 mmol/L (3.5-5.1) Chloride Level 93 mmol/L (98-107) Carbon Dioxide Level 9 mmol/L (21-32) Anion Gap 27 (6-14) Blood Urea Nitrogen 33 mg/dL (8-26) Creatinine 2.1 mg/dL (0.7-1.3) Estimated GFR (Cockcroft-Gault) 41.0 BUN/Creatinine Ratio 16 (6-20) Glucose Level 518 mg/dL (70-99) Calcium Level 9.9 mg/dL (8.5-10.1) Magnesium Level 2.0 mg/dL (1.8-2.4) Total Bilirubin 0.6 mg/dL (0.2-1.0) Aspartate Amino Transf (AST/SGOT) 10 U/L (15-37) Alanine Aminotransferase (ALT/SGPT) 23 U/L (16-63) Alkaline Phosphatase 77 U/L (46-116) Troponin I Quantitative < 0.017 ng/mL (0.000-0.055) Total Protein 8.8 g/dL (6.4-8.2) Albumin 4.0 g/dL (3.4-5.0) Albumin/Globulin Ratio 0.8 (1.0-1.7) Lipase 247 U/L (73-393) Acetone Level Mod pos (NEG) Influenza Type A Antigen Negative (NEGATIVE) Influenza Type B Antigen Negative (NEGATIVE) O2 Saturation 97 % (92-99) Arterial Blood pH 7.22 (7.35-7.45) Arterial Blood pCO2 at Patient Temp 19 mmHg (35-46) Arterial Blood pO2 at Patient Temp 111 mmHg (75-108) Arterial Blood HCO3 8 mmol/L (21-28) Arterial Blood Base Excess -18 mmol/L (-3-3) Oxyhemoglobin 96.2 % Methemoglobin 0.5 % (0.0-1.9) Carbon Monoxide, Quantitative 0.3 % (0.0-1.9) FiO2 Ra Urine Collection Type Unknown Urine Color Yellow Urine Clarity Clear Urine pH 5.0 (<5.0-8.0) Urine Specific [place] 1.025 (1.000-1.030) Urine Protein 30 mg/dL (NEG-TRACE) Urine Glucose (UA) >=1000 mg/dL (NEG) Urine Ketones (Stick) >=80 mg/dL (NEG) Urine Blood Trace (NEG) Urine Nitrite Negative (NEG) Urine Bilirubin Negative (NEG) Urine Urobilinogen Dipstick 0.2 mg/dL (0.2 mg/dL) Urine Leukocyte Esterase Negative (NEG) Urine RBC Occ /HPF (0-2) Urine WBC 11-20 /HPF (0-4) Urine Squamous Epithelial Cells Mod /LPF Urine Bacteria 0 /HPF (0-FEW) Urine Hyaline Casts Few /HPF Urine Mucus Slight /LPF Urine Trichomonas Present Urine Yeast Present /HPF Test 07/29/20 21:02 07/29/20 22:15 07/29/20 22:20 07/29/20 23:19 Glucose (Fingerstick) 284 mg/dL (70-99) 172 mg/dL (70-99) 162 mg/dL (70-99) Sodium Level 138 mmol/L (136-145) Potassium Level 4.4 mmol/L (3.5-5.1) Chloride Level 105 mmol/L (98-107) Carbon Dioxide Level 16 mmol/L (21-32) Anion Gap 17 (6-14) Blood Urea Nitrogen 30 mg/dL (8-26) Creatinine 1.6 mg/dL (0.7-1.3) Estimated GFR (Cockcroft-Gault) 56.1 Glucose Level 206 mg/dL (70-99) Calcium Level 8.5 mg/dL (8.5-10.1) Phosphorus Level 3.2 mg/dL (2.6-4.7) Magnesium Level 1.8 mg/dL (1.8-2.4) Test 07/30/20 00:12 07/30/20 01:17 07/30/20 02:23 07/30/20 03:29 Glucose (Fingerstick) 185 mg/dL (70-99) 187 mg/dL (70-99) 140 mg/dL (70-99) 105 mg/dL (70-99) Test 07/30/20 04:31 07/30/20 05:51 07/30/20 06:25 07/30/20 07:30 Glucose (Fingerstick) 136 mg/dL (70-99) 140 mg/dL (70-99) 104 mg/dL (70-99) Sodium Level 140 mmol/L (136-145) Potassium Level 3.7 mmol/L (3.5-5.1) Chloride Level 108 mmol/L (98-107) Carbon Dioxide Level 20 mmol/L (21-32) Anion Gap 12 (6-14) Blood Urea Nitrogen 24 mg/dL (8-26) Creatinine 1.4 mg/dL (0.7-1.3) Estimated GFR (Cockcroft-Gault) 65.4 Glucose Level 136 mg/dL (70-99) Calcium Level 8.8 mg/dL (8.5-10.1) Phosphorus Level 3.3 mg/dL (2.6-4.7) Magnesium Level 3.1 mg/dL (1.8-2.4) OY-[id number]-Type Natriuretic Peptide 37 pg/mL (0-124) Test 07/30/20 11:42 Glucose (Fingerstick) 243 mg/dL (70-99) Review All relevant outside records, renal labs, imaging studies, telemetry/EKG's were reviewed. VALDO BATEMAN MD Jul 30, 2020 14:32
[2020-07-30] MEDS: INSULIN LISPRO 300 UNITS/3 ML VIAL. SQ SCH ×2 (16:19→16:21)
[2020-07-30] MEDS: FAMOTIDINE 20 MG TABLET. PO SCH (21:06)
[2020-07-31 03:00] VITALS: BP 139/64
[2020-07-31 05:02] LABS: CALCIUM 8.6 mg/dL (8.5-10.1); CREATININE 1.2 mg/dL (0.7-1.3); GFR 78.2; POTASSIUM 3.6 mmol/L (3.5-5.1)
[2020-07-31 07:00] VITALS: BP 129/79
[2020-07-31] MEDS: INSULIN LISPRO 300 UNITS/3 ML VIAL. SQ SCH ×2 (08:19→11:37)
[2020-07-31] MEDS: FAMOTIDINE 20 MG TABLET. PO SCH (08:20)
[2020-07-31] MEDS: DOCUSATE SODIUM 100 MG CAPSULE. PO SCH (08:20)
[2020-07-31] MEDS: SENNOSIDES/DOCUSATE 8.6/50MG TABLET. PO SCH (08:20)
[2020-07-31 11:22] VITALS: BP 134/80
[2020-07-31] MEDS ORDERED: METF500T16 PO ×2 (12:15→12:16)
[2020-07-31] MEDS ORDERED: SITA100T PO ×2 (12:15→12:16)
--- NOTE | 2020-07-31 12:17 | DISCH ---
DISCHARGE INSTRUCTIONS Condition on Discharge Condition on Discharge: Stable Activity After Discharge Activity Instructions for Disc: No restrictions Driving Instructions after Dis: Do not drive today Diet after Discharge Diet after Discharge: Cardiac Contacting the DRPartha after DC Call your doctor for: If your condition worsens Follow-Up Follow up with: PCP within 2 weeks of discharge Follow Up With: Making sure you resume taking your diabetic medications CARIDAD BULLOCK MD Jul 31, 2020 12:17
--- NOTE | 2020-07-31 12:17 | PDOC ---
DATE OF SERVICE DATE: 07/31/20 TIME: 12:15 SUBJECTIVE ROS stable OBJECTIVE Vital Signs Vital Signs Date Time Temp Pulse Resp B/P (MAP) Pulse Ox O2 Delivery O2 Flow Rate FiO2 07/31/20 11:22 98.2 70 18 134/80 (98) 100 Room Air 98.2 I & 0 Intake and Output 07/31/20 07:00 Intake Total 360 ml Output Total 700 ml Balance -340 ml Intake Oral 360 ml Output Urine Total 700 ml PHYSICAL EXAM Physical Exam GENERAL: No apparent distress. HEENT: OM moist NECK: Supple LUNGS: Clear to auscultation, Non labored HEART: RRR, S1, S2 present. ABDOMEN: Soft, nontender. EXTREMITIES: No cyanosis, clubbing, or edema. NEUROLOGIC: grossly normal PSYCHIATRIC: Normal affect, normal mood. Stable. SKIN: No ulcerations or rashes, good skin turgor, no jaundice. Vital Signs DIAGNOSIS/ASSESSMENT Assessment & Plan ROGELIO - Vasomotor/2/2 dehydration/DKA . CT scan - Kidneys/Bladder unremarkable resolved Supportive care, maintain Hydration, I/O, avoid nephrotoxins DKA at presentation - improving, moved out of ICU HypoNatremia- Na normal after correcting for glucose DM per primary PUI Covid DC per primary COMMENT/RELEVANT DATA Meds Current Medications Medications (Trade) Dose Ordered Sig/[place] Start Time Stop Time Status Last Admin Dose Admin Acetaminophen (Tylenol) 650 mg PRN Q6HRS PRN 07/29/20 19:45 Bisacodyl (Dulcolax Supp) 10 mg PRN DAILY PRN 07/29/20 19:45 Dextrose (Dextrose 50%-Water Syringe) 12.5 gm PRN Q15MIN PRN 07/30/20 09:15 Dextrose/Sodium Chloride 1,000 ml @ 250 mls/hr Q4H 07/29/20 22:30 07/30/20 09:05 DC 07/30/20 02:40 250 MLS/HR Docusate Sodium (Colace) 100 mg BID 07/29/20 21:00 07/31/20 08:20 100 MG Famotidine (Pepcid Vial) 20 mg BID 07/29/20 21:00 07/30/20 14:28 DC 07/30/20 09:09 20 MG Famotidine (Pepcid) 20 mg BID 07/30/20 21:00 07/31/20 08:20 20 MG Fentanyl Citrate (Fentanyl 2ml Vial) 25 mcg PRN Q1HR PRN 07/29/20 19:45 Info (CONTRAST GIVEN -- Rx MONITORING) 1 each PRN DAILY PRN 07/29/20 17:15 07/31/20 17:14 Info (Icu Electrolyte Protocol) 1 ea DAILY 07/30/20 09:00 07/30/20 09:05 DC Insulin Glargine (Lantus Syringe) 20 unit 1X ONCE 07/30/20 08:00 07/30/20 08:01 DC 07/30/20 08:24 20 UNIT Insulin Human Lispro (HumaLOG) 0-7 UNITS TIDWMEALS 07/30/20 12:00 07/31/20 11:37 6 UNITS Insulin Human Regular 100 ml @ 0 mls/hr 1X ONCE 07/29/20 18:45 07/29/20 18:46 DC 07/29/20 20:04 5.6 MLS/HR Insulin Human Regular (HumuLIN R VIAL) 10 unit 1X ONCE 07/29/20 18:15 07/29/20 18:16 DC 07/29/20 18:23 10 UNIT Insulin Human Regular 100 unit/ Sodium Chloride 101 ml @ 0 mls/hr CONT PRN PRN 07/29/20 19:45 07/30/20 09:05 DC Iohexol (Omnipaque 300 Mg/ml) 75 ml 1X ONCE 07/29/20 17:00 07/29/20 17:02 DC 07/29/20 17:00 75 ML Lactulose (Lactulose) 20 gm PRN Q12HR PRN 07/29/20 19:45 Lorazepam (Ativan Inj) 0.5 mg PRN Q6HRS PRN 07/29/20 19:45 Magnesium Sulfate 100 ml @ 25 mls/hr DAILY 07/30/20 00:00 07/30/20 07:30 DC 07/29/20 23:42 25 MLS/HR Metoclopramide HCl (Reglan Vial) 10 mg 1X ONCE 07/29/20 17:30 07/29/20 17:31 DC 07/29/20 17:55 10 MG Metronidazole 100 ml @ 100 mls/hr 1X ONCE 07/29/20 18:45 07/29/20 19:44 DC 07/29/20 19:57 100 MLS/HR Ondansetron HCl (Zofran) 4 mg PRN Q8HRS PRN 07/29/20 20:00 07/30/20 07:31 DC Potassium Chloride/Water 100 ml @ 100 mls/hr PRN Q1HR PRN 07/29/20 19:45 07/30/20 09:05 DC Senna/Docusate Sodium (Senna Plus) 1 tab BID 07/29/20 21:00 07/31/20 08:20 1 TAB Sodium Chloride 1,000 ml @ 100 mls/hr Q10H 07/29/20 20:00 07/30/20 19:59 DC 07/30/20 16:22 100 MLS/HR Sodium Chloride (Normal Saline Flush) 3 ml QSHIFT PRN 07/29/20 19:45 Lab Laboratory Tests Test 07/30/20 16:10 07/30/20 19:20 07/31/20 03:50 07/31/20 07:38 Glucose (Fingerstick) 334 mg/dL (70-99) 263 mg/dL (70-99) 216 mg/dL (70-99) Sodium Level 133 mmol/L (136-145) Potassium Level 3.6 mmol/L (3.5-5.1) Chloride Level 102 mmol/L (98-107) Carbon Dioxide Level 21 mmol/L (21-32) Anion Gap 10 (6-14) Blood Urea Nitrogen 16 mg/dL (8-26) Creatinine 1.2 mg/dL (0.7-1.3) Estimated GFR (Cockcroft-Gault) 78.2 Glucose Level 246 mg/dL (70-99) Calcium Level 8.6 mg/dL (8.5-10.1) Test 07/31/20 10:58 Glucose (Fingerstick) 298 mg/dL (70-99) Results All relevant outside records, renal labs, imaging studies, telemetry/EKG's were reviewed. Justicifation of Admission Dx: Justifications for Admission: Justification of Admission Dx: N/A VALDO BATEMAN MD Jul 31, 2020 12:17
--- NOTE | 2020-07-31 13:52 | NUR ---
SW following for discharge planning. Spoke with RN and reviewed chart. Pt to discharge home today, self-care on room air and oral medications. Pt provided with GoodRx card. No further SW needs at this time.
--- NOTE | 2020-07-31 14:50 | NUR ---
PT DISCHARGED TO HOME. DISCHARGE TEACHING DONE. VERBALIZED UNDERSTANDING.
--- NOTE | 2020-08-02 17:31 | PDOC3 ---
[facility]-Discharge Summary Date of Admission: Date of Admission: Jul 30, 2020 Date of Discharge: Date of Discharge: Jul 31, 2020 Discharge Diagnosis: Discharge Diagnosis: DKA ROGELIO due to vasomotor nephropathy Hospital Course: Hospital Course: 49-year-old male who presented to the ER with nausea, vomiting, diarrhea. It is worse with food. His symptoms are worse with food, better with no food. No diarrhea. Started last week. He has been trying to increase his home meds, but that did not seem to help. He has been very weak. I discussed the case with the ER physician. We are going to admit the patient and consult Nephrology as his creatinine is high at 1.4. He also has some mild hyperglycemia with an anion gap metabolic acidosis, suspicious for DKA. Patient was able to transfer out of ICU and wean of Insulin gtt. He was tolerating diet and was clinically stable. His AG improved and his UOP and Cr improved by day of discharge. Disposition: Disposition/Orders: D/C to Home Activity: Activity: Resume previous activity Diet: Diet: Consistent Carbohydrate Medications: Home Meds Active Scripts Sitagliptin Phosphate (JANUVIA) 100 Mg Tablet, 1 TAB PO DAILY for dm for 30 Days, #30 TAB Prov:CARIDAD BULLOCK MD 07/31/20 Metformin Hcl (METFORMIN HCL) 500 Mg Tablet, 1 TAB PO BID for dm for 30 Days, #60 TAB Prov:CARIDAD BULLOCK MD 07/31/20 Clonidine Hcl (CLONIDINE HCL) 0.1 Mg Tablet, 0.1 MG PO BID, #20 TAB Prov:JASMYN OSULLIVAN MD 02/01/19 Reported Medications Cetirizine Hcl (CETIRIZINE HCL) 10 Mg Tablet, 10 MG PO PRN DAILY PRN for HEADACHE 07/20/15 Discontinued Scripts Amoxicillin (AMOXICILLIN) 500 Mg Capsule, 1 CAP PO Q8HRS for infection, #30 CAP Prov:JASMYN OSULLIVAN MD 02/01/19 Scheduled Clonidine Hcl (Clonidine Hcl), 0.1 MG PO BID Metformin Hcl (Metformin Hcl), 1 TAB PO BID Sitagliptin Phosphate (Januvia), 1 TAB PO DAILY Scheduled PRN Cetirizine Hcl (Cetirizine Hcl), 10 MG PO PRN DAILY PRN for HEADACHE, (Reported) Discontinued Medications Amoxicillin (Amoxicillin), 1 CAP PO Q8HRS Total Time: Total Time: Total time spent was 38 minutes in preparing scripts, discharge planning with SW and RN, and preparing this discharge summary. Patient seen and examined on day of discharge. Justicifation of Admission Dx: Justifications for Admission: Justification of Admission Dx: N/A CARIDAD BULLOCK MD Aug 02, 2020 17:31
== END 2020-07-31 14:50 | disposition home or self-care (01) | DRG 638 ==
LOC: ER 16:38 → 1 WEST ICU 20:45 → 6 SOUTH 07-30 09:50
PROVIDERS: ADMIT Internal Medicine; ATTEND Internal Medicine
DX: E11.10 Type 2 diabetes mellitus with ketoacidosis without coma (principal); E87.1 Hypo-osmolality and hyponatremia; N17.9 Acute kidney failure, unspecified; Z20.822 Contact with and (suspected) exposure to COVID-19; E78.00 Pure hypercholesterolemia, unspecified; A59.9 Trichomoniasis, unspecified; E86.0 Dehydration; I10 Essential (primary) hypertension; Z87.891 Personal history of nicotine dependence; Z83.3 Family history of diabetes mellitus; Z88.1 Allergy status to other antibiotic agents; Z88.8 Allergy status to other drugs, medicaments and biological substances
CPT/HCPCS: 36415; 36600; 74176; 80048; 80053; 81001; 82010; 82805; 82962; 83690; 83735; 83880; 84100; 84484; 85007; 85025; 87086; 87804; 93005; 96361; 96365; 96368; 96375; J1815; J2405; J2765; J3475; J3490; J7030; J7042; Q9967; U0003; 99285-25; G0378